=== PATIENT | male | born 2000 | race Hispanic/Latino ===

== ENCOUNTER 2020-10-03 18:27 | Inpatient (IN) | payer OTHER ==
[~2020-10-03] VITALS: Ht 162.6 cm; Wt 68.9 kg
[2020-10-03] MEDS ORDERED: ETOMIDATE INJ 20MG/10ML VIAL IV ONE (19:00)
[2020-10-03] MEDS ORDERED: SUCCINYLCHOLINE INJ 200 MG/10 ML VIAL (J0330) IV ONE (19:00)
[2020-10-03] MEDS ORDERED: LIDOCAINE 2% 5ML JELLY UROJET TOP ONE (19:00)
[2020-10-03] MEDS ORDERED: NS 1,000 ML IV ONE (19:00)
[2020-10-03 19:04] LABS: BASO % 0.4 % (0.0-1.0); EOS # 0.1 10^3/uL (0.0-0.5); EOS % 0.8 % (0.0-3.0); HEMATOCRIT 47.8 % (42.0-52.0); HEMOGLOBIN 15.5 g/dl (13.5-17.5); LYMPH # 3.9 10^3/uL (1.5-5.0); LYMPH % 36.4 % (24.0-44.0); MEAN CORPUSCULAR HEMOGLOBIN 27.5 pg (27.0-33.0); MEAN CORPUSCULAR HGB CONC 32.4 g/dl (32.0-36.5); MEAN CORPUSCULAR VOLUME 84.9 fl (80.0-96.0); MONO # 0.9 10^3/uL (0.0-0.8); MONO % 8.3 % (0.0-5.0); NEUTROPHILS # 5.7 10^3/uL (1.5-8.5); NEUTROPHILS % 53.3 % (36.0-66.0); PLATELET COUNT, AUTOMATED 263 10^3/uL (150-450); RED BLOOD COUNT 5.63 10^6/uL (4.30-6.10); WHITE BLOOD COUNT 10.6 10^3/uL (4.0-10.0)
[2020-10-03] MEDS ORDERED: PROPOFOL 1,000 MG/100 ML VIAL As Ordered ONE (19:11)
[2020-10-03] MEDS ORDERED: propofoL 1,000 MG in IV 1 EA IV SCH (19:15)
--- NOTE | 2020-10-03 19:28 | REP ---
INDICATION: Altered Mental Status COMPARISON: None. TECHNIQUE: Portable AP view of the chest FINDINGS: Endotracheal tube 3 cm above the derian. Nasogastric tube terminates at the mid esophagus and requires advancement. The mediastinum and cardiac silhouette are within normal limits for portable technique. The lung cortez demonstrate diffuse left-sided and right infrahilar infiltrates consistent with multifocal pneumonia. No effusion. No pneumothorax. IMPRESSION: 1. Nasogastric tube terminates at the mid esophagus and requires advancement. 2. Endotracheal tube in satisfactory position. 3. Diffuse left-sided and right infrahilar infiltrates compatible with pneumonia. Findings should be correlated with patient's COVID-19 status. <Electronically signed by Jeffrey Vaca > 10/03/20 [id number]
[2020-10-03 19:36] LABS: ACETAMINOPHEN LEVEL < 2.0 UG/ML (10.0-30.0); ALBUMIN 4.1 GM/DL (3.2-5.2); ALT/SGPT 51 U/L (12-78); BILIRUBIN,DIRECT 0.1 MG/DL (0.0-0.2); BILIRUBIN,TOTAL 0.3 MG/DL (0.2-1.0); BLOOD UREA NITROGEN 8 MG/DL (7-18); CALCIUM LEVEL 8.7 MG/DL (8.5-10.1); CARBON DIOXIDE LEVEL 28 MEQ/L (21-32); CHLORIDE LEVEL 103 MEQ/L (98-107); CK-MB VALUE MASS 1.3 NG/ML (<3.6); CPK CREATINE PHOSPHOKINASE 195 U/L (39-308); CREATININE FOR GFR 0.86 MG/DL (0.70-1.30); ETHYL ALCOHOL (ETHANOL) 0.307 % (0.000-0.010); GLOMERULAR FILTRATION RATE > 60.0 (>60); GLUCOSE, FASTING 119 MG/DL (70-100); MB/CK RELATIVE INDEX 0.67 (< OR =4); POTASSIUM SERUM 3.4 MEQ/L (3.5-5.1); SALICYLATE LEVEL < 1.7 MG/DL (5.0-30.0); SODIUM LEVEL 140 MEQ/L (136-145); TOTAL PROTEIN 8.5 GM/DL (6.4-8.2); TROPONIN I < 0.02 NG/ML (< 0.10)
[2020-10-03 20:25] LABS: RSV AMPLIFICATION NEGATIVE (NEGATIVE)
--- NOTE | 2020-10-03 20:25 | REPVR ---
PROCEDURE INFORMATION: Exam: CT Head Without Contrast Exam date and time: 10/03/2020 7:51 PM Age: 20 years old Clinical indication: Altered mental status/memory loss TECHNIQUE: Imaging protocol: Computed tomography of the head without contrast. Radiation optimization: All CT scans at this facility use at least one of these dose optimization techniques: automated exposure control; mA and/or kV adjustment per patient size (includes targeted exams where dose is matched to clinical indication); or iterative reconstruction. COMPARISON: No relevant prior studies available. FINDINGS: Brain: Normal. No hemorrhage. Unremarkable white matter. No mass effect. Cerebral ventricles: No ventriculomegaly. Bones/joints: Unremarkable. No acute fracture. Paranasal sinuses: Visualized sinuses are unremarkable. No fluid levels. Mastoid air cells: Visualized mastoid air cells are well aerated. Soft tissues: Unremarkable. IMPRESSION: No acute intracranial abnormality. Electronically signed by: Ranulfo Virk On 10/03/2020 20:25:32 PM
[2020-10-03 21:01] LABS: AMPHETAMINES LEVEL URINE NEGATIVE (NEGATIVE); BARBITURATES URINE NEGATIVE (NEGATIVE); BENZODIAZEPINES URINE NEGATIVE (NEGATIVE); CANNABINOIDS URINE NEGATIVE (NEGATIVE); COCAINE METABOLITE URINE NEGATIVE (NEGATIVE); METHADONE URINE NEGATIVE (NEGATIVE); OPIATES URINE NEGATIVE (NEGATIVE); PHENCYCLIDINE URINE NEGATIVE (NEGATIVE)
[2020-10-03] MEDS: D5W/0.9% SODIUM CHLORIDE 1,000 ML IV SCH (21:51)
[2020-10-03] MEDS: cefTRIAXone SOD 1 GM in D5W MINI-BAG PLUS 50 ML IV SCH (21:51)
[2020-10-03] MEDS ORDERED: SYNT25TA PO (21:58)
[2020-10-03] MEDS ORDERED: PRAZ2CAP PO (21:58)
[2020-10-03] MEDS ORDERED: DIVA500T94 PO (21:58)
[2020-10-03] MEDS ORDERED: DIVA250T67 PO (21:58)
[2020-10-03] MEDS ORDERED: OLAN10TA2 PO (21:58)
[2020-10-03] MEDS ORDERED: PANT40TA29 PO (21:58)
[2020-10-03] MEDS ORDERED: SERT25TA21 PO (21:58)
[2020-10-03 23:49] LABS: ABG pH (ARTERIAL) 7.314 UNITS (7.350-7.450)
[2020-10-03 23:50] LABS: ABG BASE EXCESS -5.8 (-2.0-2.0); ABG HCO3 19.9 MEQ/L (22.0-26.0); ABG O2 SATURATION 99.1 % (95.0-99.0); ABG PARTIAL PRESSURE CO2 40.1 mmHg (35.0-45.0); ABG PARTIAL PRESSURE O2 186.3 mmHg (75.0-100.0); ABG STANDARD HCO3 19.8 MEQ/L (22.0-26.0); ABG TOTAL CO2 21.2 MEQ/L (22.0-29.0)
[2020-10-04] VITALS (14 sets, daily range): BP systolic 104–131; BP diastolic 56–81; PULSE 71
[2020-10-04] MEDS: MIDAZOLAM INJ 2MG/2ML VIAL (J2250 PER 1MG) IV PRN ×8 (02:08→23:04)
[2020-10-04] MEDS: propofoL 1,000 MG in IV 1 EA IV SCH ×2 (03:53→16:19)
[2020-10-04 05:27] LABS: BASO % 0.2 % (0.0-1.0); EOS % 0.4 % (0.0-3.0); HEMATOCRIT 46.5 % (42.0-52.0); HEMOGLOBIN 15.6 g/dl (13.5-17.5); LYMPH # 2.2 10^3/uL (1.5-5.0); LYMPH % 21.3 % (24.0-44.0); MEAN CORPUSCULAR HEMOGLOBIN 28.4 pg (27.0-33.0); MEAN CORPUSCULAR HGB CONC 33.5 g/dl (32.0-36.5); MEAN CORPUSCULAR VOLUME 84.7 fl (80.0-96.0); MONO # 1.3 10^3/uL (0.0-0.8); MONO % 12.6 % (0.0-5.0); NEUTROPHILS # 6.7 10^3/uL (1.5-8.5); NEUTROPHILS % 65.1 % (36.0-66.0); PLATELET COUNT, AUTOMATED 231 10^3/uL (150-450); RED BLOOD COUNT 5.49 10^6/uL (4.30-6.10); WHITE BLOOD COUNT 10.2 10^3/uL (4.0-10.0)
[2020-10-04 05:56] LABS: ABG BASE EXCESS -1.3 (-2.0-2.0); ABG HCO3 23.6 MEQ/L (22.0-26.0); ABG O2 SATURATION 98.1 % (95.0-99.0); ABG PARTIAL PRESSURE CO2 40.8 mmHg (35.0-45.0); ABG STANDARD HCO3 23.4 MEQ/L (22.0-26.0); ABG TOTAL CO2 24.9 MEQ/L (22.0-29.0); ABG pH (ARTERIAL) 7.381 UNITS (7.350-7.450)
[2020-10-04 06:02] LABS: ALBUMIN 3.3 GM/DL (3.2-5.2); ALT/SGPT 53 U/L (12-78); BILIRUBIN,TOTAL 0.5 MG/DL (0.2-1.0); BLOOD UREA NITROGEN 5 MG/DL (7-18); CARBON DIOXIDE LEVEL 24 MEQ/L (21-32); CHLORIDE LEVEL 111 MEQ/L (98-107); CHOLESTEROL LEVEL 125 MG/DL (< 200); CPK CREATINE PHOSPHOKINASE 3295 U/L (39-308); GLOMERULAR FILTRATION RATE > 60.0 (>60); GLUCOSE, FASTING 114 MG/DL (70-100); LDH LACTATE DEHYDROGENASE 244 U/L (87-241); PHOSPHORUS LEVEL 3.9 MG/DL (2.5-4.9); POTASSIUM SERUM 3.8 MEQ/L (3.5-5.1); SODIUM LEVEL 144 MEQ/L (136-145); TOTAL PROTEIN 7.4 GM/DL (6.4-8.2); TRIGLYCERIDES LEVEL 221 MG/DL (<150)
[2020-10-04] MEDS: IPRATROPIUM 0.5MG/ALBUTEROL 2.5MG INH SOL UD 3ML (DUONEB) NEB SCH ×4 (07:31→20:48)
--- NOTE | 2020-10-04 07:41 | ECGEPIP ---
[facility] - ED Test Date: 2020-10-03 Pat Name: LARY BARRAGAN Department: Room: - Gender: Male Mri Technologist: : 2002-10-03 Requested By: JENNIFER ECHEVARRIA Order Number: [id number] Reading MD: Marci Vasquez Measurements Intervals [place] Rate: 73 P: 31 IA: 178 QRS: 87 QRSD: 94 T: 43 QT: 383 QTc: 425 Interpretive Statements SINUS RHYTHM EARLY REPOLARIZATION MODERATE VOLTAGE CRITERIA FOR LVH, CONSIDER NORMAL VARIANT baseline artifact may affect interpretation No prior Electronically Signed on 10-04-2020 7:41:20 EST by Marci Vasquez
--- NOTE | 2020-10-04 07:53 | CCN ---
CRITICAL CARE NOTE DATE: 10/03/2020 SUBJECTIVE: I was called stat to the emergency department to evaluate this 20-year-old male who was found outdoors in the cold poorly responsive. There was no change in his responsiveness with administration of Narcan at the scene. He was brought to the emergency department and evaluated found to be poorly responsive there with no response to noxious stimuli. Jocelin Coma Score of 3. Diagnostic studies have been performed and an endotracheal tube has been placed. OBJECTIVE: GENERAL APPEARANCE: On my arrival, he is sedate with propofol. VITAL SIGNS: Temperature 95, pulse rate 64, respirations 12/12 delivered. No spontaneous breaths over the mechanically ventilated breaths. Blood pressure 104/58. HEENT: His head is atraumatic. The pupils are similar in size, small about 4 mm, and minimal response to light. There is an endotracheal tube and orogastric tube in good position. The mucosa are moist. NECK: Supple. No obvious meningismus. HEART: Sounds are regular without appreciable murmur. No lift, no rub. LUNGS: Breath sounds are mildly coarse bilaterally. No other focal adventitial breath sounds appreciated. CHEST: Moves symmetrically with ventilated breaths. ABDOMEN: Soft with intact bowel sounds. There is no palpable mass or organomegaly. EXTREMITIES: Cool. Feet are cold. Pulses are palpable in all four extremities. There are no obvious deformities. There is a tattoo on the left arm. DIAGNOSTIC STUDIES: Reviewed and assessed. The white cell count is 10.6, hemoglobin is 15.5, hematocrit 47.8, platelet count 263,000. Differential white cell count shows 53% neutrophils. There are 8.3% monocytes. The electrolytes were sodium 140, potassium 3.4, chloride 103, CO2 of 28, BUN of 8, creatinine 0.83, glucose 119, lactic acid level 4.6, calcium 8.7, but the albumin level is 4.1, bilirubin 0.3, AST is 36, ALT 51, alkaline phosphatase 99, and CPK 195. Troponin is less than 0.02. TSH is 2.010. The toxicology screen was showing ethyl alcohol 0.387. Opiates and methadone were negative. Barbiturates negative. Phencyclidine negative. Amphetamines negative. Benzodiazepines negative. Cocaine and cannabinoids were negative. A smear for COVID was performed and was negative. Influenza A and B were negative. RSV was negative. DIAGNOSTIC IMAGING: Studies reviewed and assessed. Chest x-ray shows hazy interstitial infiltrates, left greater than right, and a formal report is pending. CT scan of his head was performed. There was no acute intracranial abnormality appreciated by radiology. MEDICAL RECORD REVIEW: I have reviewed medical records, and there have been multiple hospitalizations for schizoaffective disorder. There is mention in one of his history and physical exams of asthma. His last discharge in July of 2020 was to the transitional living services. ASSESSMENT AND PLAN: 1. The primary problem requiring critical attention is acute respiratory failure. An endotracheal tube has been placed. We will initiate mechanical ventilation, sedate with propofol, and follow gas exchange. 2. Abnormal x-rays. The image is nonspecific suggesting a possible aspiration event. COVID pneumonia was suggested by the radiologist report now; however, the COVID smear was negative. We will initiate empiric Rocephin and obtain a sputum culture. 3. Hypothermia. The patient's temperature is now 95.6. External warming has been initiated. We will continue with external warming on his transfer. 4. Altered level of consciousness. It is unclear at this point whether this was related to a medication ingestion, though his tox screen was negative, or hypoxic encephalopathy. As noted above, the brain CT is negative. We will closely monitor neurologic signs. 5. Deep vein thrombosis (DVT) prophylaxis will be addressed with sequential hose and TEDs. We will avoid anticoagulation until we are able to better assess his status neurologically. 6. Ulcer prophylaxis will be addressed with Protonix. I have reviewed the case and diagnostic studies with the emergency department providers. I have updated the intensive care unit team and the plans of care have been reviewed. CRITICAL CARE TIME: 127 minutes spent in the provision of bedside critical care and coordination; excluding any time for the performance of procedures.
[2020-10-04] MEDS: D5W/0.9% SODIUM CHLORIDE 1,000 ML IV SCH ×2 (07:59→16:18)
[2020-10-04] MEDS: PANTOPRAZOLE 40MG VIAL (C9113 PER 1) IV SCH (08:05)
[2020-10-04] MEDS: CHLORHEXIDINE GLUCONATE 0.12 % 15ML UDC (PERIDEX ORAL RINSE) MT SCH ×2 (08:05→20:49)
--- NOTE | 2020-10-04 08:14 | REP ---
INDICATION: ETT COMPARISON: 10/03/2020 TECHNIQUE: Portable AP view of the chest FINDINGS: Endotracheal tube and nasogastric tube are in satisfactory position. The mediastinum and cardiac silhouette are stable and within normal limits for portable technique. The lung cortez demonstrate improved aeration with decreased infiltrates. Continued bilateral lower lobe airspace disease/atelectasis noted. No effusion. No pneumothorax. Skeletal structures intact. IMPRESSION: 1. Endotracheal tube and nasogastric tube in satisfactory position. 2. Improved aeration primarily to the upper lung zones. Lower lobe airspace disease/atelectasis again noted. <Electronically signed by Jeffrey Vaac > 10/04/20 [id number]
[2020-10-04] MEDS: ACETAMINOPHEN 325 MG/10.15 ML UDC GT PRN ×2 (13:20→20:50)
--- NOTE | 2020-10-04 15:55 | CCN ---
CRITICAL CARE NOTE DATE: 10/04/2020 The patient is seen in the intensive care unit intubated, mechanically ventilated, critically ill. Over the last 12 hours since admission he has become intermittent more responsive and is occasionally appropriate with nurses. Temperature is 100.6, pulse rate 99, respirations 17, blood pressure 113/60. Intake and output for the past 24 hours 1050 in, out not recorded, since midnight 1230 in, 1525 out. At bedside he is ill appearing, sedate. Endotracheal tube is at 23 cm. His mucosa is moist. Neck is supple. Heart sounds are regular without appreciable murmur. Breath sounds are clear, mildly coarse in the right base. Abdomen is soft with intact bowel sounds. Extremities show no significant edema. Pulses are palpable. DIAGNOSTIC STUDIES: His white cell count is 10.2, hemoglobin is stable at 15.6, hematocrit 46.5, platelet count is 213. Differential white cell count shows 65% neutrophils. The sodium is 144, potassium 3.8, chloride 111, CO2 of 24, BUN 5, creatinine 0.7, glucose 114, calcium 8. Bilirubin ;0.5. AST is up slightly at 84, ALT 53. LDH is 244. CPK is up significantly at 3295. Albumin is 3.3. An arterial blood gas showed a pH of 7.38, pCO2 of 40, pO2 of 106, this on assist-control mode of ventilation. Toxicology showed positive for ethyl alcohol, 0.30. Chest imaging was reviewed and is essentially clear with some hazy infiltrate in the right lower lobe, better inflation than yesterday. On medications review, he is receiving Rocephin 2 gram every 24 hours, propofol for sedation, Versed as needed, and Intravenous (IV) with D5 and saline at 120 per hour, Protonix 40 mg a day. The primary problem requiring critical attention is acute respiratory failure. The patient's arterial blood gases are acceptable, and I will change to an intermittent mandatory ventilation mode to allow spontaneous respiratory efforts. Aspiration pneumonia. The chest x-ray looks improved. He did run a temperature this morning, and we have cultured his sputum. We will continue with empiric Rocephin pending the results of that culture. Rhabdomyolysis. The CPK is up some. I have increased his IV fluids. We will keep a close watch on his urine output. Deep venous thrombosis (DVT) and ulcer prophylaxis are in place. The patient's condition remains critical. ICU care remains appropriate. I have reviewed the plans of care with nursing staff. Ninety-eight minutes was spent in the provision of bedside critical care and coordination, exclusive of any procedure time.
[2020-10-04] MEDS: cefTRIAXone SOD 1 GM in D5W MINI-BAG PLUS 50 ML IV SCH (20:50)
[2020-10-05] VITALS: BP 112/67
[2020-10-05] MEDS: propofoL 1,000 MG in IV 1 EA IV SCH (00:26)
[2020-10-05] MEDS: D5W/0.9% SODIUM CHLORIDE 1,000 ML IV SCH ×2 (01:00→10:47)
[2020-10-05] MEDS: ACETAMINOPHEN 325 MG/10.15 ML UDC GT PRN ×3 (02:12→22:28)
[2020-10-05 05:47] LABS: BASO % 0.2 % (0.0-1.0); EOS % 0.2 % (0.0-3.0); HEMATOCRIT 41.2 % (42.0-52.0); LYMPH % 16.4 % (24.0-44.0); MEAN CORPUSCULAR HGB CONC 32.5 g/dl (32.0-36.5); MEAN CORPUSCULAR VOLUME 86.2 fl (80.0-96.0); MONO # 2.3 10^3/uL (0.0-0.8); MONO % 18.7 % (0.0-5.0); NEUTROPHILS # 7.8 10^3/uL (1.5-8.5); NEUTROPHILS % 64.2 % (36.0-66.0); PLATELET COUNT, AUTOMATED 193 10^3/uL (150-450); RED BLOOD COUNT 4.78 10^6/uL (4.30-6.10); WHITE BLOOD COUNT 12.2 10^3/uL (4.0-10.0)
[2020-10-05 05:51] LABS: ABG O2 SATURATION 95.2 % (95.0-99.0); ABG PARTIAL PRESSURE CO2 34.4 mmHg (35.0-45.0); ABG PARTIAL PRESSURE O2 77.2 mmHg (75.0-100.0); ABG STANDARD HCO3 21.9 MEQ/L (22.0-26.0); ABG TOTAL CO2 22.1 MEQ/L (22.0-29.0); ABG pH (ARTERIAL) 7.404 UNITS (7.350-7.450)
[2020-10-05 05:55] LABS: HEMOGLOBIN 13.4 g/dl (13.5-17.5)
[2020-10-05 06:29] LABS: ALBUMIN 2.9 GM/DL (3.2-5.2); ALT/SGPT 41 U/L (12-78); BILIRUBIN,TOTAL 0.8 MG/DL (0.2-1.0); BLOOD UREA NITROGEN 5 MG/DL (7-18); CALCIUM LEVEL 8.1 MG/DL (8.5-10.1); CARBON DIOXIDE LEVEL 26 MEQ/L (21-32); CHLORIDE LEVEL 112 MEQ/L (98-107); CHOLESTEROL LEVEL 99 MG/DL (< 200); CPK CREATINE PHOSPHOKINASE 1942 U/L (39-308); CREATININE FOR GFR 0.78 MG/DL (0.70-1.30); GLOMERULAR FILTRATION RATE > 60.0 (>60); GLUCOSE, FASTING 118 MG/DL (70-100); LDH LACTATE DEHYDROGENASE 216 U/L (87-241); PHOSPHORUS LEVEL 2.6 MG/DL (2.5-4.9); POTASSIUM SERUM 3.5 MEQ/L (3.5-5.1); SODIUM LEVEL 143 MEQ/L (136-145); TOTAL PROTEIN 6.9 GM/DL (6.4-8.2); TRIGLYCERIDES LEVEL 188 MG/DL (<150)
--- NOTE | 2020-10-05 07:39 | REP ---
INDICATION: ETT COMPARISON: 10/04/2019 TECHNIQUE: Portable AP view of the chest FINDINGS: Endotracheal tube 3 cm above the derian. Nasogastric tube courses below left hemidiaphragm in satisfactory position. Mediastinum and cardiac silhouette are normal. Lung cortez demonstrate minimal improved basilar airspace disease/atelectasis. No focal consolidation. No effusion. No pneumothorax. IMPRESSION: 1. Lines and tubes in satisfactory position. 2. Improved aeration to the bilateral lung cortez with minimal trace residual basilar atelectasis suggested. <Electronically signed by Jeffrey Vaca > 10/05/20 0735
[2020-10-05] MEDS: IPRATROPIUM 0.5MG/ALBUTEROL 2.5MG INH SOL UD 3ML (DUONEB) NEB SCH ×4 (07:41→20:21)
[2020-10-05] MEDS: CHLORHEXIDINE GLUCONATE 0.12 % 15ML UDC (PERIDEX ORAL RINSE) MT SCH (08:16)
[2020-10-05] MEDS: PANTOPRAZOLE 40MG VIAL (C9113 PER 1) IV SCH (08:16)
--- NOTE | 2020-10-05 11:07 | IPN ---
PULMONARY PROGRESS NOTE DATE: 10/05/2020 SUBJECTIVE: I attended Deven Ballard here in the Intensive Care Unit. Patient has been examined, chart reviewed. He is awake, alert, and appropriate despite low dose of propofol. T-max overnight 100.6, blood pressure 112 systolic, heart rate 70-100 with a sinus mechanism, respiratory rate 16-20 without accessory muscle use. Input and output midnight to midnight 2297 mL in with 1870 mL out. Chest x-ray shows improved infiltrate. Some residual basilar atelectasis. Lines and tubes in good position with no acute findings. Blood gas done this morning on an SIMV mode: A pH 7.404, pCO2 34.4, pO2 77.2. That is on 21% FiO2. Sodium 143, K 3.5, chloride 112, CO2 26, BUN 5, creatinine 0.78, glucose 118. CK down to 1,942. White blood cell count 12.2, hemoglobin 13.4, platelet count of 193,000, 64% segs, 16% lymphs, no bands. He does have elevated monocytes at 18.7%. PHYSICAL EXAMINATION: GENERAL: On exam he is awake, alert, and appropriate, moves all extremities well and follows commands. HEENT: Pupils react. Sclerae clear. Trachea is in the midline. LUNGS: Clear to auscultation and percussion, symmetric and no significant focal adventitious breath sounds are identified. Tactile fremitus palpable throughout. CARDIAC: Regular with no murmur or gallop. Peripheral pulses palpable with no edema. ABDOMEN: Soft and nontender with active bowel sounds, no hepatosplenomegaly or masses. EXTREMITIES: Extremities with no cyanosis or clubbing. NEUROLOGIC: Neurologically he is awake, alert, and appropriate. PSYCHIATRIC: Alert and oriented times three. Normal mood and affect although somewhat blunted due to the propofol. Propofol was discontinued. After ten minutes he was much more interactive, even more so than above and was extubated without difficulty. No obvious stridor. Swallows well. Complains of some chest discomfort. IMPRESSION: 1. Intoxication requiring mechanical ventilatory support. 2. Suspected aspiration pneumonitis. 3. ETOH/substance abuse. RECOMMENDATIONS: At this point he has been extubated. He should receive several more days of antimicrobials. He will be transferred to the hospitalist service. Whether or not he may benefit from detox or inpatient management of that will be up to further evaluation by the hospitalist service. We will proceed as outlined above. Further recommendations will be made in the progress records as new information becomes available.
[2020-10-05 13:31] VITALS: BP 139/85
--- NOTE | 2020-10-05 13:37 | IPNPDOC ---
Date Seen The patient was seen on 10/05/20. Progress Note SUBJECTIVE: Patient was extubated this morning and had no post extubation complications. He is awake, alert, oriented 3, answering questions appropriately with no respiratory distress, currently on nasal cannula. He is anxious to start eating. He otherwise complains of slight sore throat but no dysphagia or odynophagia. He denies any shortness of breath, chest pain, pressure, tightness, and says that he is comfortable. . He said that he has always been depressed and had been drinking alcohol with his friend .He denies any suicidal ideation, Suicidal plan, or homicidal ideation. History father on the telephone states that he's been depressed all of his life, with no recent stressful situations. OBJECTIVE PHYSICAL EXAMINATION: VITAL SIGNS: Please see below. GENERAL: Awake, alert, oriented to person, place and time. No respiratory distress, speaks in full sentences HEENT: Dry mucous membranes. No JVD, thyromegaly, cervical lymphadenopathy CARDIOVASCULAR: S1, S2, sinus rhythm, no murmurs, rubs or gallops. RESPIRATORY: Diminished crackles at the right base ABDOMINAL: Positive bowel sounds, soft, nontender, nondistended. Robledo to gravity with yellow urine EXTREMITIES: No cyanosis, clubbing or pitting edema LABORATORY DATA, IMAGING STUDIES, MICROBIOLOGY: Please see below. The toxicology screen was showing ethyl alcohol 0.387. Opiates and methadone were negative. Barbiturates negative. Phencyclidine negative. Amphetamines negative. Benzodiazepines negative. Cocaine and cannabinoids were negative. A smear for COVID was performed and was negative. Influenza A and B were negative. RSV was negative. DIAGNOSTIC IMAGING: Studies reviewed and assessed. Chest x-ray shows hazy interstitial infiltrates, left greater than right, and a formal report is pending. CT scan of his head was performed. There was no acute intracranial abnormality appreciated by radiology. ASSESSMENT AND PLAN: 20-year-old male brought into the emergency room on 10/03/2020 [place] was given Narcan, but had acute hypoxic respiratory failure, hypothermia, aspiration, rhabdomyolysis. Acute hypoxic respiratory failure ETOH intoxication Hypothermia Aspiration pneumonia RLL Rhabdomyolysis Depression Plan: medically stable for med surg transfer. STaph aureus in sputum cx-continue iv ceftriaxone. ella robledo, ella ivfluids advance diet if no signs of aspiration. pt denies suicidal/homicidal tendency, and requests psychiatric consultation for depression. VS, I&O, 24H, Fishbone Vital Signs/I&O Vital Signs Date Time Temp Pulse Resp B/P (MAP) Pulse Ox O2 Delivery O2 Flow Rate FiO2 10/05/20 08:00 21 10/05/20 07:40 72 16 94 10/05/20 04:00 100.2 Ventilator 10/05/20 00:00 112/67 (86) I&O- Last 24 Hours up to 6 AM 10/05/20 06:00 Intake Total 1924.8 ml Output Total 930 ml Balance 994.8 ml Laboratory Data 24H LABS Laboratory Tests 2 10/05/20 05:13: Immature Granulocyte % (Auto) 0.3, Neutrophils (%) (Auto) 64.2, Lymphocytes (%) (Auto) 16.4L, Monocytes (%) (Auto) 18.7H, Eosinophils (%) (Auto) 0.2, Basophils (%) (Auto) 0.2, Neutrophils # (Auto) 7.8, Lymphocytes # (Auto) 2.0, Monocytes # (Auto) 2.3H, Eosinophils # (Auto) 0.0, Basophils # (Auto) 0.0, Nucleated Red Blo od Cells % (auto) 0.0, Anion Gap 5L, Glomerular Filtration Rate > 60.0, Calcium Level 8.1L, Phosphorus Level 2.6#, Total Bilirubin 0.8#, Aspartate Amino Transf (AST/SGOT) 56H, Alanine Aminotransferase (ALT/SGPT) 41, Alkaline Phosphatase 82, Lactate Dehydrogenase 216, Total Creatine Kinase 1942H, Total Protein 6.9, Albumin 2.9L, Albumin/Globulin Ratio 0.7, Triglycerides Level 188H, Cholesterol Level 99 10/05/20 05:27: Blood Gas Bicarbonate Standard 21.9L, Arterial Blood pH 7.404, Arterial Blood Partial Pressure CO2 34.4L, Arterial Blood Partial Pressure O2 77.2, Arterial Blood Total CO2 22.1, Arterial Blood HCO3 21.0L, Arterial Blood Base Excess - 3.0L, Arterial Blood Oxygen Saturation 95.2 CBC/BMP Laboratory Tests 10/05/20 05:13 Microbiology Microbiology 10/04/20 Gram Stain - Final, Resulted 10/04/20 Sputum Culture - Preliminary, Resulted Staphylococcus Aureus ARIANNA HUIZAR MD Oct 05, 2020 13:17
[2020-10-05 22:00] VITALS: BP 134/77
[2020-10-05] MEDS: cefTRIAXone SOD 1 GM in D5W MINI-BAG PLUS 50 ML IV SCH (22:28)
[2020-10-06 06:00] VITALS: BP 126/88
[2020-10-06 06:16] LABS: ABG BASE EXCESS -3.6 (-2.0-2.0); ABG HCO3 20.2 MEQ/L (22.0-26.0); ABG O2 SATURATION 96.5 % (95.0-99.0); ABG PARTIAL PRESSURE CO2 33.4 mmHg (35.0-45.0); ABG PARTIAL PRESSURE O2 85.8 mmHg (75.0-100.0); ABG STANDARD HCO3 21.5 MEQ/L (22.0-26.0); ABG TOTAL CO2 21.3 MEQ/L (22.0-29.0)
[2020-10-06 06:31] LABS: BASO % 0.3 % (0.0-1.0); EOS # 0.2 10^3/uL (0.0-0.5); HEMATOCRIT 40.7 % (42.0-52.0); HEMOGLOBIN 13.6 g/dl (13.5-17.5); LYMPH # 3.2 10^3/uL (1.5-5.0); LYMPH % 29.9 % (24.0-44.0); MEAN CORPUSCULAR HEMOGLOBIN 28.1 pg (27.0-33.0); MEAN CORPUSCULAR HGB CONC 33.4 g/dl (32.0-36.5); MEAN CORPUSCULAR VOLUME 84.1 fl (80.0-96.0); MONO # 1.4 10^3/uL (0.0-0.8); MONO % 12.6 % (0.0-5.0); NEUTROPHILS # 5.9 10^3/uL (1.5-8.5); NEUTROPHILS % 54.6 % (36.0-66.0); PLATELET COUNT, AUTOMATED 205 10^3/uL (150-450); RED BLOOD COUNT 4.84 10^6/uL (4.30-6.10); WHITE BLOOD COUNT 10.8 10^3/uL (4.0-10.0)
[2020-10-06 07:08] LABS: ALBUMIN 3.3 GM/DL (3.2-5.2); ALT/SGPT 60 U/L (12-78); BILIRUBIN,TOTAL 0.9 MG/DL (0.2-1.0); BLOOD UREA NITROGEN 8 MG/DL (7-18); CALCIUM LEVEL 8.6 MG/DL (8.5-10.1); CARBON DIOXIDE LEVEL 27 MEQ/L (21-32); CHLORIDE LEVEL 108 MEQ/L (98-107); CHOLESTEROL LEVEL 126 MG/DL (< 200); CPK CREATINE PHOSPHOKINASE 1199 U/L (39-308); GLOMERULAR FILTRATION RATE > 60.0 (>60); GLUCOSE, FASTING 91 MG/DL (70-100); LDH LACTATE DEHYDROGENASE 234 U/L (87-241); PHOSPHORUS LEVEL 3.8 MG/DL (2.5-4.9); POTASSIUM SERUM 3.7 MEQ/L (3.5-5.1); SODIUM LEVEL 139 MEQ/L (136-145); TOTAL PROTEIN 7.4 GM/DL (6.4-8.2); TRIGLYCERIDES LEVEL 186 MG/DL (<150)
[2020-10-06] MEDS: IPRATROPIUM 0.5MG/ALBUTEROL 2.5MG INH SOL UD 3ML (DUONEB) NEB SCH ×4 (07:16→19:57)
[2020-10-06] MEDS: PANTOPRAZOLE 40MG VIAL (C9113 PER 1) IV SCH (09:36)
[2020-10-06] MEDS ORDERED: cefTRIAXone SOD 2 GM in D5W MINI-BAG PLUS 50 ML IV SCH (11:00)
--- NOTE | 2020-10-06 12:12 | IPNPDOC ---
Date Seen The patient was seen on 10/06/20. Progress Note S: had fever , but denies chills, sob, or cough no signs of aspiration. no other c/o. OBJECTIVE PHYSICAL EXAMINATION: VITAL SIGNS: Please see below. GENERAL:No respiratory distress, speaks in full sentences HEENT: moist mucous membranes. No JVD, thyromegaly, cervical lymphadenopathy CARDIOVASCULAR: S1, S2, sinus rhythm, no murmurs, rubs or gallops. RESPIRATORY: Diminished crackles at the right base ABDOMINAL: Positive bowel sounds, soft, nontender, nondistended. EXTREMITIES: No cyanosis, clubbing or pitting edema LABORATORY DATA, IMAGING STUDIES, MICROBIOLOGY: Please see below. The toxicology screen was showing ethyl alcohol 0.387. Opiates and methadone were negative. Barbiturates negative. Phencyclidine negative. Amphetamines negative. Benzodiazepines negative. Cocaine and cannabinoids were negative. A smear for COVID was performed and was negative. Influenza A and B were negative. RSV was negative. DIAGNOSTIC IMAGING: Studies reviewed and assessed. Chest x-ray shows hazy interstitial infiltrates, left greater than right, and a formal report is pending. CT scan of his head was performed. There was no acute intracranial abnormality appreciated by radiology. ASSESSMENT AND PLAN: 20-year-old male brought into the emergency room on 10/03/2020 [place] was given Narcan, but had acute hypoxic respiratory failure, hypothermia, aspiration, rhabdomyolysis. Acute hypoxic respiratory failure ETOH intoxication Hypothermia Staph Aureus pneumonia RLL Aspiration Rhabdomyolysis Depression Plan: febrile overnight. increased ceftriaxone to 2grams iv q24h check mrsa screen. iv vanco for possible mrsa check blood cx if positive for mssa will need JACQUELINE to r/o endocarditis. dc home postponed for further eval of fever-concerning for staph bacteremia and possible endocarditis. await blood cx result and 24hrs of defervescence prior to dc home. pharmacy consulted for vanco dosing. VS, I&O, 24H, Fishbone Vital Signs/I&O Vital Signs Date Time Temp Pulse Resp B/P (MAP) Pulse Ox O2 Delivery O2 Flow Rate FiO2 10/06/20 06:00 98.6 88 20 126/88 (101) 95 Room Air 10/05/20 08:00 21 I&O- Last 24 Hours up to 6 AM 10/06/20 06:00 Intake Total 2419 ml Output Total 540 ml Balance 1879 ml Laboratory Data 24H LABS Laboratory Tests 2 10/06/20 05:55: Blood Gas Bicarbonate Standard 21.5L, Arterial Blood pH 7.400, Arterial Blood Partial Pressure CO2 33.4L, Arterial Blood Partial Pressure O2 85.8, Arterial Blood Total CO2 21.3L, Arterial Blood HCO3 20.2L, Arterial Blood Base Excess - 3.6L, Arterial Blood Oxygen Saturation 96.5 10/06/20 06:05: Immature Granulocyte % (Auto) 0.6, Neutrophils (%) (Auto) 54.6, Lymphocytes (%) (Auto) 29.9, Monocytes (%) (Auto) 12.6H, Eosinophils (%) (Auto) 2.0, Basophils (%) (Auto) 0.3, Neutrophils # (Auto) 5.9, Lymphocytes # (Auto) 3.2, Monocytes # (Auto) 1.4H, Eosinophils # (Auto) 0.2, Basophils # (Auto) 0.0, Nucleated Red Blood Cells % (auto) 0.0, Anion Gap 4L, Glomerular Filtration Rate > 60.0, Calcium Level 8.6, Phosphorus Level 3.8#, Total Bilirubin 0.9, Aspartate Amino Transf (AST/SGOT) 63H, Alanine Aminotransferase (ALT/SGPT) 60, Alkaline Phosphatase 99, Lactate Dehydrogenase 234, Total Creatine Kinase 1199H, Total Protein 7.4, Albumin 3.3, Albumin/Globulin Ratio 0.8, Triglycerides Level 186H, Cholesterol Level 126 10/06/20 11:34: CBC/BMP Laboratory Tests 10/06/20 06:05 Microbiology Microbiology 10/06/20 Blood Culture, Received Pending 10/06/20 Blood Culture, Received Pending 10/04/20 Gram Stain - Final, Resulted 10/04/20 Sputum Culture - Preliminary, Resulted Staphylococcus Aureus ARIANNA HUIZAR MD Oct 06, 2020 12:12
[2020-10-06] MEDS ORDERED: VANCOMYCIN HCL 1,000 MG, VIAL MATE ADAPTER 1 EACH in D5W 250 ML IV ONE (14:00)
--- NOTE | 2020-10-06 14:21 | MHCR ---
PSYCHIATRIC CONSULTATION DATE: 10/05/2020 HISTORY OF PRESENT ILLNESS: This 22-year-old patient was admitted in respiratory failure with hypothermia and had to be intubated and he had aspiration and some rhabdomyolysis. [place] in an acutely intoxicated state with alcohol. The patient is very cooperative. He tells me that he lives in [facility] ([facility]) in [place] and that he went out with one of the other residents and he suggested that they go drink alcohol. He admits that he drank to intoxication. He really does not remember what happened after that. He absolutely denies that this was a suicidal attempt. The patient does have a significant psychiatric history. He has been hospitalized numerous times in the psychiatric unit and he lives in [facility], which is a [facility] for people with psychiatric illness. He has been living there for two months, he says. He says that he really likes it there a lot. He says he was getting outpatient treatment, but he cannot remember at what clinic, but then we asked him if it was the [facility] clinic and he said yes. He says he is prescribed various medications that include Depakote, Zyprexa, Zoloft and prazosin. He says he is diagnosed with "severe anxiety, depression, bipolar and schizoaffective disorder." PAST PSYCHIATRIC HISTORY: Please refer to the above. The patient has had two psychiatric admissions at [facility] inpatient unit. Last admission was July 24, 2020 until July 30, 2020. He was diagnosed with schizoaffective disorder, posttraumatic stress disorder (PTSD) and anxiety disorder. He was admitted for depression and he had suicidal ideations and was discharged on Depakote 500 mg in the morning, 750 at bedtime, Zyprexa 10 mg twice a day, prazosin 2 mg at bedtime and Zoloft 25 mg daily. According to those records, it states that this patient has had more than 40 admissions. He has a history of overdosing on Xanax once when he was 14 years old. FAMILY HISTORY: There is no psychiatric illness or suicides in the family. MEDICAL HISTORY: Patient denies any medical problems. ABUSE HISTORY: He denies any history of abuse. SUBSTANCE ABUSE HISTORY: He says that he drinks only occasionally and he has never had any trouble with any drugs. MENTAL STATUS EXAMINATION: He is alert and oriented times three. Eye contact is fair. He is just extubated, so he is having a little trouble with his throat being raspy and he tends to speak very slowly, but he is spontaneous. There is no formal thought disorder. He says that he does have some depression. Affect is appropriate. He is no psychotic, suicidal or homicidal. Concentration is fairly good. Memory intact. Insight and judgment is good. DIAGNOSES: 1. Schizoaffective disorder by history. 2. Posttraumatic stress disorder by history. 3. Unspecified anxiety disorder by history. RECOMMENDATIONS: At this point, I do not think that this was a suicidal attempt on this patient. He does have a significant psychiatric history, but he lives at [facility] and I did speak with patient and family services (PFS), Shania, and left her a message to please call [facility] in [place] to make sure the patient could go back there. The patient already has his outpatient psychiatric treatment set up for him and he should continue that and continue his current medications.
[2020-10-06] MEDS ORDERED: ALPRAZolam 0.5 MG TAB PO PRN (15:15)
[2020-10-06] MEDS ORDERED: ALPRAZolam 0.5 MG TAB PO ONE (15:30)
[2020-10-06] MEDS: VANCOMYCIN HCL 1,000 MG, VIAL MATE ADAPTER 1 EACH in D5W 250 ML IV SCH (20:57)
[2020-10-06 22:00] VITALS: BP 120/79
[2020-10-07] MEDS: VANCOMYCIN HCL 1,000 MG, VIAL MATE ADAPTER 1 EACH in D5W 250 ML IV SCH ×3 (04:31→20:58)
[2020-10-07 06:00] VITALS: BP 119/56
[2020-10-07 06:08] LABS: BASO % 0.4 % (0.0-1.0); EOS # 0.3 10^3/uL (0.0-0.5); EOS % 3.2 % (0.0-3.0); HEMATOCRIT 40.9 % (42.0-52.0); HEMOGLOBIN 13.4 g/dl (13.5-17.5); LYMPH # 2.9 10^3/uL (1.5-5.0); LYMPH % 37.7 % (24.0-44.0); MEAN CORPUSCULAR HEMOGLOBIN 27.6 pg (27.0-33.0); MEAN CORPUSCULAR HGB CONC 32.8 g/dl (32.0-36.5); MEAN CORPUSCULAR VOLUME 84.2 fl (80.0-96.0); MONO # 0.8 10^3/uL (0.0-0.8); MONO % 9.7 % (0.0-5.0); NEUTROPHILS # 3.7 10^3/uL (1.5-8.5); PLATELET COUNT, AUTOMATED 230 10^3/uL (150-450); RED BLOOD COUNT 4.86 10^6/uL (4.30-6.10); WHITE BLOOD COUNT 7.7 10^3/uL (4.0-10.0)
[2020-10-07 06:39] LABS: BLOOD UREA NITROGEN 11 MG/DL (7-18); C REACTIVE PROTEIN QUANTITATIV 6.89 MG/DL (0.00-0.30); CALCIUM LEVEL 8.8 MG/DL (8.5-10.1); CARBON DIOXIDE LEVEL 25 MEQ/L (21-32); CHLORIDE LEVEL 104 MEQ/L (98-107); CREATININE FOR GFR 0.71 MG/DL (0.70-1.30); GLOMERULAR FILTRATION RATE > 60.0 (>60); GLUCOSE, FASTING 121 MG/DL (70-100); SODIUM LEVEL 136 MEQ/L (136-145)
[2020-10-07 06:42] LABS: ABG BASE EXCESS -3.5 (-2.0-2.0); ABG HCO3 20.3 MEQ/L (22.0-26.0); ABG O2 SATURATION 98.9 % (95.0-99.0); ABG PARTIAL PRESSURE CO2 33.4 mmHg (35.0-45.0); ABG PARTIAL PRESSURE O2 136.4 mmHg (75.0-100.0); ABG STANDARD HCO3 21.6 MEQ/L (22.0-26.0); ABG TOTAL CO2 21.3 MEQ/L (22.0-29.0); ABG pH (ARTERIAL) 7.401 UNITS (7.350-7.450)
[2020-10-07 07:19] LABS: ERYTHROCYTE SEDIMENTATION RATE 28 mm/hr (0-15)
[2020-10-07] MEDS ORDERED: ZYVO1TAB PO (07:43)
[2020-10-07] MEDS: IPRATROPIUM 0.5MG/ALBUTEROL 2.5MG INH SOL UD 3ML (DUONEB) NEB SCH ×4 (07:53→20:00)
[2020-10-07] MEDS ORDERED: SERTRALINE HCL 25 MG TABLET PO SCH (10:00)
[2020-10-07] MEDS: LEVOTHYROXINE 37.5MCG PER 1/2TAB (0.0375MG) PO SCH (10:46)
[2020-10-07] MEDS: OLANZapine 10 MG TAB PO SCH ×2 (10:46→20:56)
[2020-10-07] MEDS: DIVALPROEX 500 MG TAB PO SCH ×2 (10:46→20:57)
[2020-10-07] MEDS: PANTOPRAZOLE 40MG TAB (PROTONIX) PO SCH (10:46)
--- NOTE | 2020-10-07 12:21 | IPNPDOC ---
Date Seen The patient was seen on 10/07/20. Progress Note S: no fever or chills overnight. denies sob cough. very anxious and agitated per RN yesterday only slightly improved on xanax prn. pt c/o depression and requesting home meds to be resumed. MRSA + on sputum cx , placed on isolation-contact. on iv vanco w/o fever overnight. awaiting blood cx to r/o bacteremia. OBJECTIVE PHYSICAL EXAMINATION: VITAL SIGNS: Please see below. GENERAL: talking on the phone with his girlfriend .no conversational dyspnea no distress aaox 3 flat affect HEENT: moist mucous membranes. thyromegaly, cervical lymphadenopathy CARDIOVASCULAR: S1, S2, sinus rhythm, no murmurs, rubs or gallops. RESPIRATORY: Diminished crackles at the right base ABDOMINAL: Positive bowel sounds, soft, nontender, nondistended. EXTREMITIES: No cyanosis, clubbing or pitting edema LABORATORY DATA, IMAGING STUDIES, MICROBIOLOGY: Please see below. The toxicology screen was showing ethyl alcohol 0.387. Opiates and methadone were negative. Barbiturates negative. Phencyclidine negative. Amphetamines negative. Benzodiazepines negative. Cocaine and cannabinoids were negative. A smear for COVID was performed and was negative. Influenza A and B were negative. RSV was negative. DIAGNOSTIC IMAGING: Studies reviewed and assessed. Chest x-ray shows hazy interstitial infiltrates, left greater than right, and a formal report is pending. CT scan of his head was performed. There was no acute intracranial abnormality appreciated by radiology. ASSESSMENT AND PLAN: 20-year-old male brought into the emergency room on 10/03/2020 [place] was given Narcan, but had acute hypoxic respiratory failure, hypothermia, aspiration, rhabdomyolysis. Acute hypoxic respiratory failure,resolved s/p intubation/extubation ETOH intoxication,resolved Hypothermia,resolved Staph Aureus pneumonia RLL Aspiration Rhabdomyolysis,resolved Depression Plan: resolved home meds. zyvox preauth-pfs consulted if negative blood cx final report, ok to dc home on Thursday. resumed home meds except zoloft. xanax prn . VS, I&O, 24H, Fishbone Vital Signs/I&O Vital Signs Date Time Temp Pulse Resp B/P (MAP) Pulse Ox O2 Delivery O2 Flow Rate FiO2 10/07/20 06:00 97.8 83 20 119/56 (77) 0 10/06/20 06:00 Room Air 10/05/20 08:00 21 I&O- Last 24 Hours up to 6 AM 10/07/20 06:00 Intake Total 2690 ml Output Total 0 ml Balance 2690 ml Laboratory Data 24H LABS Laboratory Tests 2 10/07/20 05:54: Immature Granulocyte % (Auto) 1.0, Neutrophils (%) (Auto) 48.0, Lymphocytes (%) (Auto) 37.7, Monocytes (%) (Auto) 9.7H, Eosinophils (%) (Auto) 3.2H, Basophils (%) (Auto) 0.4, Neutrophils # (Auto) 3.7, Lymphocytes # (Auto) 2.9, Monocytes # (Auto) 0.8, Eosinophils # (Auto) 0.3, Basophils # (Auto) 0.0, Nucleated Red Blood Cells % (auto) 0.0, Erythrocyte Sedimentation Rate 28H, Anion Gap 7L, Glomerular Filtration Rate > 60.0, Calcium Level 8.8, C-Reactive Protein, Quantitative 6.89H 10/07/20 06:36: Blood Gas Bicarbonate Standard 21.6L, Arterial Blood pH 7.401, Arterial Blood Partial Pressure CO2 33.4L, Arterial Blood Partial Pressure O2 136.4H, Arterial Blood Total CO2 21.3L, Arterial Blood HCO3 20.3L, Arterial Blood Base Excess - 3.5L, Arterial Blood Oxygen Saturation 98.9 CBC/BMP Laboratory Tests 10/07/20 05:54 Microbiology Microbiology 10/07/20 Blood Culture, Received Pending 10/06/20 Blood Culture - Preliminary, Resulted No growth after 24 hours . All specim... 10/06/20 Blood Culture - Preliminary, Resulted No growth after 24 hours . All specim... 10/04/20 Gram Stain - Final, Complete 10/04/20 Sputum Culture - Final, Complete Staph.aureus Methicillin Resis ARIANNA HUIZAR MD Oct 07, 2020 12:21
[2020-10-07] MEDS: ALPRAZolam 0.5 MG TAB PO SCH ×3 (12:42→20:57)
[2020-10-07 14:00] VITALS: BP 114/66
[2020-10-07 20:57] VITALS: BP 120/65
[2020-10-07] MEDS ORDERED: PRAZOSIN 1 MG CAP PO SCH (21:00)
[2020-10-07] MEDS ORDERED: DIVALPROEX 250 MG TAB PO SCH (21:00)
[2020-10-07 22:00] VITALS: BP 120/65
[2020-10-08] MEDS: VANCOMYCIN HCL 1,000 MG, VIAL MATE ADAPTER 1 EACH in D5W 250 ML IV SCH (04:29)
[2020-10-08 06:00] VITALS: BP 116/68
[2020-10-08] MEDS: LEVOTHYROXINE 37.5MCG PER 1/2TAB (0.0375MG) PO SCH (06:17)
[2020-10-08] MEDS: IPRATROPIUM 0.5MG/ALBUTEROL 2.5MG INH SOL UD 3ML (DUONEB) NEB SCH ×2 (06:29→11:37)
[2020-10-08 06:35] LABS: BASO % 0.6 % (0.0-1.0); EOS # 0.2 10^3/uL (0.0-0.5); EOS % 3.4 % (0.0-3.0); HEMATOCRIT 40.5 % (42.0-52.0); HEMOGLOBIN 13.2 g/dl (13.5-17.5); LYMPH # 2.6 10^3/uL (1.5-5.0); LYMPH % 38.5 % (24.0-44.0); MEAN CORPUSCULAR HEMOGLOBIN 27.7 pg (27.0-33.0); MEAN CORPUSCULAR HGB CONC 32.6 g/dl (32.0-36.5); MEAN CORPUSCULAR VOLUME 84.9 fl (80.0-96.0); MONO # 0.6 10^3/uL (0.0-0.8); MONO % 8.8 % (0.0-5.0); NEUTROPHILS # 3.3 10^3/uL (1.5-8.5); NEUTROPHILS % 47.7 % (36.0-66.0); PLATELET COUNT, AUTOMATED 248 10^3/uL (150-450); RED BLOOD COUNT 4.77 10^6/uL (4.30-6.10); WHITE BLOOD COUNT 6.8 10^3/uL (4.0-10.0)
[2020-10-08 06:55] LABS: BLOOD UREA NITROGEN 11 MG/DL (7-18); C REACTIVE PROTEIN QUANTITATIV 3.06 MG/DL (0.00-0.30); CARBON DIOXIDE LEVEL 24 MEQ/L (21-32); CHLORIDE LEVEL 106 MEQ/L (98-107); GLOMERULAR FILTRATION RATE > 60.0 (>60); GLUCOSE, FASTING 108 MG/DL (70-100); POTASSIUM SERUM 3.4 MEQ/L (3.5-5.1); SODIUM LEVEL 139 MEQ/L (136-145)
[2020-10-08 07:06] LABS: ERYTHROCYTE SEDIMENTATION RATE 37 mm/hr (0-15)
[2020-10-08] MEDS ORDERED: POTASSIUM CHLORIDE 10 MEQ SR TABLET PO ONE (07:30)
[2020-10-08] MEDS: OLANZapine 10 MG TAB PO SCH (08:58)
[2020-10-08] MEDS: PANTOPRAZOLE 40MG TAB (PROTONIX) PO SCH (08:58)
[2020-10-08] MEDS: ALPRAZolam 0.5 MG TAB PO SCH (08:58)
[2020-10-08] MEDS: DIVALPROEX 500 MG TAB PO SCH (08:58)
[2020-10-08] MEDS ORDERED: LINEZOLID 600MG TABLET (ZYVOX) PO SCH (09:00)
--- NOTE | 2020-10-08 09:55 | DS.PDOC ---
Discharge Summary General Date of Admission Oct 03, 2020 at 21:16 Date of Discharge 10/08/20 Discharge Summary DISCHARGE DIAGNOSES: Acute hypoxic respiratory failure,resolved s/p intubation/mechanical ventilation extubation ETOH intoxication Hypothermia,resolved Methicillin-resistatn Staph Aureus pneumonia RLL Aspiration Rhabdomyolysis,resolved Depression DISCHARGE MEDICATIONS: SEE BELOW ALLERGIES: SEE BELOW DISCHARGE INSTRUCTIONS: DO NOT TAKE ZOLOFT WHILE TAKING ANTIBIOTIC ZYVOX COMPLETE 5 MORE DAYS OF ZYVOX PCP FU APPT WITHIN 5 DAYS PCP TO REFER TO A PSYCHIATRIST FOR DEPRESSION WITHIN 7DAYS HOSPITAL COURSE: 20-year-old male brought into the emergency room on 10/03/2020 [place] was given Narcan, but had acute hypoxic respiratory failure, hypothermia, aspiration, rhabdomyolysis. Patient was emergently intubated x 48hrs, sputum cx: MRSA with signs of aspiration. Pt was on iv ceftriaxone 1 gram q12hr x 3days, but became febrile 101.5. blood cx negative x 3 . Ceftriaxone was discontinued, and pt was given iv vanco 1gram q8hrs w wbc improving to normal and no repeat fevers. pt was discharged on zyvox to complete 5 days. total abx 7days=2 days iv vanco + 5 days po zyvox. his zoloft is to be held while on zyvox. pt was seen by psychiatrist Dr. Davis for depression and recommended outpt psych for management. pt was given xanax tid for anxiety. DISCHARGE PHYSICAL EXAMINATION: VITAL SIGNS: Please see below. GENERAL: talking on the phone with his girlfriend .no conversational dyspnea no distress aaox 3 flat affect HEENT: moist mucous membranes. thyromegaly, cervical lymphadenopathy CARDIOVASCULAR: S1, S2, sinus rhythm, no murmurs, rubs or gallops. RESPIRATORY: Diminished crackles at the right base ABDOMINAL: Positive bowel sounds, soft, nontender, nondistended. EXTREMITIES: No cyanosis, clubbing or pitting edema LABORATORY DATA, IMAGING STUDIES, MICROBIOLOGY: Please see below. The toxicology screen was showing ethyl alcohol 0.387. Opiates and methadone were negative. Barbiturates negative. Phencyclidine negative. Amphetamines negative. Benzodiazepines negative. Cocaine and cannabinoids were negative. A smear for COVID was performed and was negative. Influenza A and B were negative. RSV was negative. DIAGNOSTIC IMAGING: Studies reviewed and assessed. Chest x-ray shows hazy interstitial infiltrates, left greater than right, and a formal report is pending. CT scan of his head was performed. There was no acute intracranial abnormality appreciated by radiology. TIME SPENT ON DISCHARGE: 30 MIN Vital Signs/I&Os Vital Signs Date Time Temp Pulse Resp B/P (MAP) Pulse Ox O2 Delivery O2 Flow Rate FiO2 10/08/20 06:00 98.9 97 18 116/68 (84) 98 10/07/20 14:00 Room Air 10/05/20 08:00 21 I&O- Last 24 Hours up to 6 AM 10/08/20 06:00 Intake Total 2350 ml Balance 2350 ml Laboratory Data Labs 24H Laboratory Tests 2 10/08/20 05:57: Immature Granulocyte % (Auto) 1.0, Neutrophils (%) (Auto) 47.7, Lymphocytes (%) (Auto) 38.5, Monocytes (%) (Auto) 8.8H, Eosinophils (%) (Auto) 3.4H, Basophils (%) (Auto) 0.6, Neutrophils # (Auto) 3.3, Lymphocytes # (Auto) 2.6, Monocytes # (Auto) 0.6, Eosinophils # (Auto) 0.2, Basophils # (Auto) 0.0, Nucleated Red Blood Cells % (auto) 0.0, Erythrocyte Sedimentation Rate 37H, Anion Gap 9, Glomerular Filtration Rate > 60.0, Calcium Level 9.0, C-Reactive Protein, Quantitative 3.06H CBC/BMP Laboratory Tests 10/08/20 05:57 Microbiology Microbiology 10/07/20 Blood Culture - Preliminary, Resulted No growth after 24 hours . All specim... 10/06/20 Blood Culture - Preliminary, Resulted No growth after 24 hours . All specim... 10/06/20 Blood Culture - Preliminary, Resulted No Growth after 48 hours. All Specime... 10/04/20 Gram Stain - Final, Complete 10/04/20 Sputum Culture - Final, Complete Staph.aureus Methicillin Resis Discharge Medications Scheduled Divalproex Sodium (Divalproex Sodium) 500 Mg Tablet.dr, 500 MG PO BID, (Reported) Divalproex Sodium (Divalproex Sodium) 250 Mg Tablet.dr, 250 MG PO QHS, (Reported) TAKES WITH 500MG FOR 750MG TOTAL AT QHS Levothyroxine Sodium (Synthroid) 25 Mcg Tablet, 37.5 MCG PO DAILY, (Reported) Linezolid (Zyvox) 600 Mg Tablet, 600 MG PO BID with food Olanzapine (Olanzapine) 10 Mg Tablet, 10 MG PO BID, (Reported) Pantoprazole Sodium (Pantoprazole Sodium) 40 Mg Tablet.dr, 40 MG PO DAILY, (Reported) Prazosin Hcl (Prazosin HCl) 2 Mg Capsule, 2 MG PO QHS, (Reported) Allergies Coded Allergies: No Known Allergies (Unverified , 10/03/20) ARIANNA HUIZAR MD Oct 08, 2020 09:43
== END 2020-10-08 13:57 | disposition home or self-care (01) | DRG 133 ==
LOC: EDBD 18:27 → M ED 18:27 → EEVIPCON 21:16 → M ED INP 21:16 → M PCU 10-04 01:03 → M MSPAV 10-05 13:33
PROVIDERS: ADMIT Internal Medicine Pulmonary Disease; ATTEND General Practice
PROC: 5A1945Z Respiratory Ventilation, 24-96 Consecutive Hours (ICD-10-PCS; principal; 2020-10-03)
PROC: 0BH17EZ Insertion of Endotracheal Airway into Trachea, Via Natural or Artificial Opening (ICD-10-PCS; 2020-10-03)
DX: J96.01 Acute respiratory failure with hypoxia (principal); J15.211 Pneumonia due to Methicillin susceptible Staphylococcus aureus; T68.XXXA Hypothermia, initial encounter; M62.82 Rhabdomyolysis; F25.9 Schizoaffective disorder, unspecified; X31.XXXA Exposure to excessive natural cold, initial encounter; F32.9 Major depressive disorder, single episode, unspecified; F10.129 Alcohol abuse with intoxication, unspecified; Y99.8 Other external cause status; F43.10 Post-traumatic stress disorder, unspecified; F41.9 Anxiety disorder, unspecified; Z20.822 Contact with and (suspected) exposure to COVID-19

== ENCOUNTER 2020-11-06 20:51 | Inpatient (IN) | payer MEDICAID, OTHER ==
[~2020-11-06] VITALS: Ht 162.6 cm; Wt 66.6 kg
[~2020-11-06 20:51] MED LIST: DIVA250T67 PO; DIVA500T94 PO; OLAN10TA2 PO; PANT40TA29 PO; PRAZ2CAP PO; SERT25TA21 PO; SYNT25TA PO; ZYVO1TAB PO
[2020-11-06] MEDS ORDERED: ZOLO50TA PO (21:32)
[2020-11-06 21:56] LABS: HEMATOCRIT 41.7 % (42.0-52.0); HEMOGLOBIN 13.6 g/dl (13.5-17.5); MEAN CORPUSCULAR HEMOGLOBIN 27.9 pg (27.0-33.0); MEAN CORPUSCULAR HGB CONC 32.6 g/dl (32.0-36.5); MEAN CORPUSCULAR VOLUME 85.5 fl (80.0-96.0); PLATELET COUNT, AUTOMATED 196 10^3/uL (150-450); RED BLOOD COUNT 4.88 10^6/uL (4.30-6.10); WHITE BLOOD COUNT 7.5 10^3/uL (4.0-10.0)
[2020-11-06 22:17] LABS: AMPHETAMINES LEVEL URINE NEGATIVE (NEGATIVE); BARBITURATES URINE NEGATIVE (NEGATIVE); BENZODIAZEPINES URINE NEGATIVE (NEGATIVE); CANNABINOIDS URINE NEGATIVE (NEGATIVE); COCAINE METABOLITE URINE NEGATIVE (NEGATIVE); METHADONE URINE NEGATIVE (NEGATIVE); OPIATES URINE NEGATIVE (NEGATIVE); PHENCYCLIDINE URINE NEGATIVE (NEGATIVE)
[2020-11-06 22:33] LABS: ACETAMINOPHEN LEVEL < 2.0 UG/ML (10.0-30.0); ALBUMIN 3.5 GM/DL (3.2-5.2); ALT/SGPT 31 U/L (12-78); BILIRUBIN,DIRECT < 0.1 MG/DL (0.0-0.2); BILIRUBIN,TOTAL 0.2 MG/DL (0.2-1.0); BLOOD UREA NITROGEN 13 MG/DL (7-18); CALCIUM LEVEL 8.8 MG/DL (8.5-10.1); CARBON DIOXIDE LEVEL 27 MEQ/L (21-32); CHLORIDE LEVEL 106 MEQ/L (98-107); CREATININE FOR GFR 0.99 MG/DL (0.70-1.30); ETHYL ALCOHOL (ETHANOL) < 0.003 % (0.000-0.010); GLOMERULAR FILTRATION RATE > 60.0 (>60); GLUCOSE, FASTING 83 MG/DL (70-100); POTASSIUM SERUM 3.6 MEQ/L (3.5-5.1); SALICYLATE LEVEL < 1.7 MG/DL (5.0-30.0); SODIUM LEVEL 139 MEQ/L (136-145); TOTAL PROTEIN 7.4 GM/DL (6.4-8.2)
[2020-11-07] MEDS ORDERED: DIPH25CA32 PO (02:12)
[2020-11-07] MEDS ORDERED: MAALOX 30 ML SUSP *UDC PO PRN (02:45)
[2020-11-07] MEDS ORDERED: OLANZapine ORAL DISINTEGRATING TAB 5MG PO PRN (02:45)
[2020-11-07] MEDS ORDERED: ACETAMINOPHEN TAB 650MG DOSE (2X325MG) PO PRN (02:45)
[2020-11-07] MEDS ORDERED: MOM 30ML SUSPENSION UDC PO PRN (02:45)
[2020-11-07 03:07] LABS: RSV AMPLIFICATION NEGATIVE (NEGATIVE)
[2020-11-07 05:45] VITALS: BP 140/94
[2020-11-07] MEDS ORDERED: diphenhydrAMINE 25MG CAP PO PRN (06:20)
[2020-11-07] MEDS: PANTOPRAZOLE 40MG TAB (PROTONIX) PO SCH (08:40)
[2020-11-07] MEDS: OLANZapine 10 MG TAB PO SCH ×2 (08:40→20:03)
[2020-11-07] MEDS: DIVALPROEX 500 MG TAB PO SCH ×2 (08:40→20:04)
[2020-11-07] MEDS ORDERED: SERTRALINE HCL 50 MG TAB PO SCH (09:00)
[2020-11-07] MEDS ORDERED: LEVOTHYROXINE 37.5MCG PER 1/2TAB (0.0375MG) PO SCH (09:00)
[2020-11-07] MEDS: LEVOTHYROXINE 37.5MCG PER 1/2TAB (0.0375MG) PO SCH (09:58)
--- NOTE | 2020-11-07 15:17 | HPEPDOC ---
General Date of Admission Nov 06, 2020 at 20:52 Date of Service: Nov 07, 2020 Chief Complaint The patient is a 20-year-old male admitted with a reason for visit of Schizoaffective Disorder. Source: Patient Exam Limitations: Mild cognitive slowing History of Present Illness Patient is 20 years old male with past medical history of depression, recent hos pitalization with regular respiratory failure and pneumonia in October 2020 presented to the hospital with suicidal ideation. Patient refused to provide any additional information except that he stated he had been having suicidal ideation and he is in mental health unit for it. During my interview patient denied any health problem, he denied fever, chills, nausea, vomiting, diarrhea or dysuria Home Medications Scheduled Divalproex Sodium (Divalproex Sodium) 500 Mg Tablet.dr, 500 MG PO BID, (Reported) Divalproex Sodium (Divalproex Sodium) 250 Mg Tablet.dr, 250 MG PO QHS, (Reported) TAKES WITH 500MG FOR 750MG TOTAL AT QHS Levothyroxine Sodium (Synthroid) 25 Mcg Tablet, 37.5 MCG PO DAILY, (Reported) Olanzapine (Olanzapine) 10 Mg Tablet, 10 MG PO BID, (Reported) Pantoprazole Sodium (Pantoprazole Sodium) 40 Mg Tablet.dr, 40 MG PO DAILY, (Reported) Prazosin Hcl (Prazosin HCl) 2 Mg Capsule, 2 MG PO QHS, (Reported) Sertraline Hcl (Zoloft) 50 Mg Tablet, 50 MG PO DAILY, (Reported) Scheduled PRN Diphenhydramine HCl (Diphenhydramine HCl) 25 Mg Capsule, 25 MG PO BID PRN for ANXIETY, (Reported) Allergies Coded Allergies: No Known Allergies (Unverified , 10/03/20) Past Medical History Medical History Depression, pneumonia Family History Father disabled of the car accident Social History * Smoker: current smoker Alcohol: Denies Drugs: denies A-FIB/CHADSVASC A-FIB History Current/History of A-Fib/PAF?: No Current PO Anticoag Therapy: No Review of Systems Constitutional: Denies: Chills, Fever Eyes: Denies: Pain ENT: Denies: Head Aches Pulmonary: Denies: Dyspnea Cardiovascular: Denies: Chest Pain Gastrointestinal: Denies: Nausea Genitourinary: Denies: Dysuria Hematologic: Denies: Bruising Endocrine: Denies: Polydipsia Musculoskeletal: Denies: Neck Pain Neurological: Denies: Weakness Psych: Reports: Anxiety, Depression Physical Examination General Exam: Positive: Alert Eye Exam: Positive: PERRLA ENT Exam: Positive: Atraumatic Neck Exam: Positive: Supple; Negative: JVD Chest Exam: Positive: Clear to auscultation Heart Exam: Positive: Rate Normal Telemetry: Positive: No significant arrhythmia Abdomen Exam: Positive: Normal bowel sounds Extremity Exam: Negative: Clubbing Skin Exam: Positive: Nl turgor and temperature Neuro Exam: Positive: Strength at 5/5 X4 ext Psych Exam: Positive: Oriented x 3 Vital Signs Vital Signs Date Time Temp Pulse Resp B/P (MAP) Pulse Ox O2 Delivery O2 Flow Rate FiO2 11/07/20 05:45 97.8 80 20 140/94 (109) 96 Room Air Laboratory Data Labs 24H Laboratory Tests 2 11/06/20 21:39: Urine Opiates Screen NEGATIVE, Urine Methadone Screen NEGATIVE, Urine Barbit urates Screen NEGATIVE, Urine Phencyclidine Screen NEGATIVE, Urine Amphetamines Screen NEGATIVE, Urine Benzodiazepines Screen NEGATIVE, Urine Cocaine Metabolite Screen NEGATIVE, Urine Cannabinoids Screen NEGATIVE 11/06/20 21:44: Nucleated Red Blood Cells % (auto) 0.0, Anion Gap 6L, Glomerular Filtration Rate > 60.0, Calcium Level 8.8, Total Bilirubin 0.2, Direct Bilirubin < 0.1, Aspartate Amino Transf (AST/SGOT) 23, Alanine Aminotransferase (ALT/SGPT) 31, Alkaline Phosphatase 109, Total Protein 7.4, Albumin 3.5, Albumin/Globulin Ratio 0.9, Thyroid Stimulating Hormone (TSH) 1.920, Salicylates Level < 1.7L, Acetaminophen Level < 2.0L, Ethyl Alcohol Level < 0.003 11/07/20 02:25: Coronavirus (COVID-19)(PCR) NEGATIVE, Influenza Type A (RT-PCR) NEGATIVE, Influenza Type B (RT-PCR) NEGATIVE, Respiratory Syncytial Virus (PCR) NEGATIVE CBC/BMP Laboratory Tests 11/06/20 21:44 Assessment/Plan Patient is 20 years old male with past medical history of depression, recent hospitalization with regular respiratory failure and pneumonia in October 2020 presented to the hospital with suicidal ideation. Patient refused to provide any additional information except that he stated he had been having suicidal ideation and he is in mental health unit for it. During my interview patient denied any health problem, he denied fever, chills, nausea, vomiting, diarrhea or dysuria Problems (1) Depression with suicidal ideation Status: Acute Problem Text: defer treatment to psych team Plan / VTE VTE Prophylaxis Ordered?: No VTE Exclusion Mechanical Proph: Low Risk for VTE DREAD SMITH DO Nov 07, 2020 15:17
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
[2020-11-07 16:29] LABS: BLOOD UREA NITROGEN 11 MG/DL (7-18); CALCIUM LEVEL 8.8 MG/DL (8.5-10.1); CARBON DIOXIDE LEVEL 26 MEQ/L (21-32); CHLORIDE LEVEL 107 MEQ/L (98-107); CREATININE FOR GFR 0.94 MG/DL (0.70-1.30); GLOMERULAR FILTRATION RATE > 60.0 (>60); GLUCOSE, FASTING 134 MG/DL (70-100); POTASSIUM SERUM 3.6 MEQ/L (3.5-5.1); SODIUM LEVEL 140 MEQ/L (136-145)
[2020-11-07 17:52] VITALS: BP 117/67
[2020-11-07] MEDS: PRAZOSIN 1 MG CAP PO SCH (20:03)
[2020-11-07] MEDS: DIVALPROEX 250 MG TAB PO SCH (20:04)
[2020-11-07] MEDS: traZODone 50 MG TAB PO PRN (20:04)
[2020-11-08] MEDS: LEVOTHYROXINE 37.5MCG PER 1/2TAB (0.0375MG) PO SCH (06:06)
[2020-11-08 06:22] VITALS: BP 125/76
[2020-11-08] MEDS: OLANZapine 10 MG TAB PO SCH ×2 (08:54→20:42)
[2020-11-08] MEDS: SERTRALINE 100 MG TAB PO SCH (08:54)
[2020-11-08] MEDS: DIVALPROEX 500 MG TAB PO SCH ×2 (08:54→20:41)
[2020-11-08] MEDS: PANTOPRAZOLE 40MG TAB (PROTONIX) PO SCH (08:54)
--- NOTE | 2020-11-08 13:15 | MHIPNPDOC ---
[facility] Progress Note Progress Note DATE OF SERVICE: 11/08/20 HISTORY: Review of past admissions March 2020 and July 2020. Both address depression but in March, he talked about girlfriend, and his plans and in July. He talked about the of his infant child and the young lady's suicide. He does not remember the last time he saw her. Since the child 11 months ago hitting head in bathtub. Patient is rather downcast today and says he doesn't remember dates. VITAL SIGNS: See below. NEW TEST RESULTS: None. CURRENT MEDICATIONS: See below. MENTAL STATUS EXAMINATION: Patient is a 20-year old male, who is 20-year-old depressed with a similar history as previous admissions of having guilt over the of his child. Speech: Is, quiet and sparse. Language skills are no gross disturbance. Thought processes including:. No gross disturbance. Thought content: As above. Abstract reasoning, and computation:. No abstract reasoning. Description of associations:. No loose association. Description of abnormal or psychotic thoughts:. No psychotic thought apparently. Judgment: Poor. Insight:, Poor. Orientation: 3. Recent and remote memory: Forgetful. Attention span and concentration: Intact. Language:. No disturbance. Fund of knowledge: Limited. Mood: Low. Affect:. Congruent. DIAGNOSES: 1., Major depression, recurrent. 2., Personality disorder. 3. None. ASSESSMENT: As above MANAGEMENT PLAN:. Continue observation and investigation. TIME SPENT: 35 minutes. Vital Signs Vital Signs Date Time Temp Pulse Resp B/P (MAP) Pulse Ox O2 Delivery O2 Flow Rate FiO2 11/08/20 06:22 98.4 59 14 125/76 (92) 11/07/20 05:45 96 Room Air Laboratory Data 24H Labs Laboratory Tests 2 11/07/20 15:46: Anion Gap 7L, Glomerular Filtration Rate > 60.0, Calcium Level 8.8 CBC/BMP Laboratory Tests 11/07/20 15:46 Current Medications Current Medications Medications (Trade) Dose Ordered Sig/Elvira Route PRN Reason Start Time Stop Time Status Last Admin Dose Admin Acetaminophen (Tylenol Tab) 650 mg Q6HP PRN PO HEADACHE or DISCOMFORT 11/07/20 02:45 Al Hydrox/Mg Hydrox/Simethicone (Mylanta) 30 ml Q4HP PRN PO HEARTBURN/INDIGESTION 11/07/20 02:45 Diphenhydramine HCl (Benadryl) 25 mg BID PRN PO ANXIETY 11/07/20 06:20 Divalproex Sodium (Depakote) 250 mg QHS PO 11/07/20 21:00 11/07/20 20:04 Divalproex Sodium (Depakote) 500 mg BID PO 11/07/20 09:00 11/08/20 08:54 Home Med (Med Rec Complete!) ASDIRECTED XX 11/07/20 02:15 11/07/20 02:20 DC Levothyroxine Sodium (Synthroid) 37.5 mcg DAILY PO 11/07/20 09:00 11/07/20 08:43 DC Levothyroxine Sodium (Synthroid) 37.5 mcg DAILY@0600 PO 11/07/20 06:00 11/08/20 06:06 Magnesium Hydroxide (Milk Of Magnesia) 30 ml DAILYPRN PRN PO CONSTIPATION 11/07/20 02:45 Olanzapine (ZyPREXA ZYDIS) 5 mg Q4HP PRN PO AGITATION 11/07/20 02:45 Olanzapine (ZyPREXA) 10 mg BID PO 11/07/20 09:00 11/08/20 08:54 Pantoprazole Sodium (Protonix) 40 mg DAILY PO 11/07/20 09:00 11/08/20 08:54 Prazosin HCl (Minipress) 2 mg QHS PO 11/07/20 21:00 11/07/20 20:03 Sertraline HCl (Zoloft) 50 mg DAILY PO 11/07/20 09:00 11/07/20 09:27 DC 11/07/20 08:40 Sertraline HCl (Zoloft) 100 mg DAILY PO 11/08/20 09:00 11/08/20 08:54 Trazodone HCl (Desyrel) 50 mg QHSP PRN PO INSOMNIA 11/07/20 02:45 11/07/20 20:04 Allergies Coded Allergies: No Known Allergies (Unverified , 10/03/20) BE WEIR MD Nov 08, 2020 13:14
[2020-11-08 18:39] VITALS: BP 107/64
[2020-11-08] MEDS: DIVALPROEX 250 MG TAB PO SCH (20:41)
[2020-11-08] MEDS: PRAZOSIN 1 MG CAP PO SCH (20:42)
[2020-11-08] MEDS: traZODone 50 MG TAB PO PRN (20:42)
[2020-11-09] MEDS: LEVOTHYROXINE 37.5MCG PER 1/2TAB (0.0375MG) PO SCH (06:04)
[2020-11-09 06:39] VITALS: BP 123/63
[2020-11-09] MEDS: PANTOPRAZOLE 40MG TAB (PROTONIX) PO SCH (09:13)
[2020-11-09] MEDS: DIVALPROEX 500 MG TAB PO SCH ×2 (09:13→20:42)
[2020-11-09] MEDS: SERTRALINE 100 MG TAB PO SCH (09:13)
[2020-11-09] MEDS: OLANZapine 10 MG TAB PO SCH ×2 (09:13→20:42)
[2020-11-09] MEDS: traZODone 50 MG TAB PO PRN (20:42)
[2020-11-09] MEDS: DIVALPROEX 250 MG TAB PO SCH (20:42)
[2020-11-09] MEDS: PRAZOSIN 1 MG CAP PO SCH (20:43)
[2020-11-10] MEDS: LEVOTHYROXINE 37.5MCG PER 1/2TAB (0.0375MG) PO SCH (06:16)
[2020-11-10 07:27] VITALS: BP 134/63
[2020-11-10] MEDS: DIVALPROEX 500 MG TAB PO SCH ×2 (09:16→20:08)
[2020-11-10] MEDS: PANTOPRAZOLE 40MG TAB (PROTONIX) PO SCH (09:16)
[2020-11-10] MEDS: SERTRALINE 100 MG TAB PO SCH (09:16)
[2020-11-10] MEDS: OLANZapine 10 MG TAB PO SCH ×2 (09:16→20:08)
--- NOTE | 2020-11-10 16:36 | MHIPNPDOC ---
[facility] Progress Note Progress Note DATE OF SERVICE: 11/10/20 HISTORY: Mood improved in this 20-year-old male who states he is working out problems with his girlfriend. He is not suicidal. VITAL SIGNS: See below. NEW TEST RESULTS: . CURRENT MEDICATIONS: See below. MENTAL STATUS EXAMINATION: Patient is a 20-year-old male with a history of recurrent depression. Speech: no gross disturbance. Language skills are. No gross disturbance. Thought processes including: Denies suicidal thoughts. Thought content: Worked out difficulties with his girlfriend. Abstract reasoning, and computation:. Poor abstraction. Description of associations:. Loose associations. Description of abnormal or psychotic thoughts: No psychotic thought. Judgment: Poor. Insight:, Poor. Orientation: 3. Recent and remote memory: Intact. Attention span and concentration: Intact. Language:. No gross disturbance. Fund of knowledge: Reasonable. Mood: Improved. Affect: bRight. DIAGNOSES: 1. Recurrent depression. 2., Some intellectual limitation. 3.. . ASSESSMENT: As above. Prognostically, patient will probably continue repeat admissions when under stress MANAGEMENT PLAN:. Has follow-up plans already. TIME SPENT: 30 minutes. Vital Signs Vital Signs Date Time Temp Pulse Resp B/P (MAP) Pulse Ox O2 Delivery O2 Flow Rate FiO2 11/10/20 07:27 97.8 73 20 134/63 (86) 99 Room Air Current Medications Current Medications Medications (Trade) Dose Ordered Sig/Elvira Route PRN Reason Start Time Stop Time Status Last Admin Dose Admin Acetaminophen (Tylenol Tab) 650 mg Q6HP PRN PO HEADACHE or DISCOMFORT 11/07/20 02:45 Al Hydrox/Mg Hydrox/Simethicone (Mylanta) 30 ml Q4HP PRN PO HEARTBURN/INDIGESTION 11/07/20 02:45 Diphenhydramine HCl (Benadryl) 25 mg BID PRN PO ANXIETY 11/07/20 06:20 Divalproex Sodium (Depakote) 250 mg QHS PO 11/07/20 21:00 11/09/20 20:42 Divalproex Sodium (Depakote) 500 mg BID PO 11/07/20 09:00 11/10/20 09:16 Home Med (Med Rec Complete!) ASDIRECTED XX 11/07/20 02:15 11/07/20 02:20 DC Levothyroxine Sodium (Synthroid) 37.5 mcg DAILY PO 11/07/20 09:00 11/07/20 08:43 DC Levothyroxine Sodium (Synthroid) 37.5 mcg DAILY@0600 PO 11/07/20 06:00 11/10/20 06:16 Magnesium Hydroxide (Milk Of Magnesia) 30 ml DAILYPRN PRN PO CONSTIPATION 11/07/20 02:45 Olanzapine (ZyPREXA ZYDIS) 5 mg Q4HP PRN PO AGITATION 11/07/20 02:45 Olanzapine (ZyPREXA) 10 mg BID PO 11/07/20 09:00 11/10/20 09:16 Pantoprazole Sodium (Protonix) 40 mg DAILY PO 11/07/20 09:00 11/10/20 09:16 Prazosin HCl (Minipress) 2 mg QHS PO 11/07/20 21:00 11/09/20 20:43 Sertraline HCl (Zoloft) 50 mg DAILY PO 11/07/20 09:00 11/07/20 09:27 DC 11/07/20 08:40 Sertraline HCl (Zoloft) 100 mg DAILY PO 11/08/20 09:00 11/10/20 09:16 Trazodone HCl (Desyrel) 50 mg QHSP PRN PO INSOMNIA 11/07/20 02:45 11/09/20 20:42 Allergies Coded Allergies: No Known Allergies (Unverified , 10/03/20) BE WEIR MD Nov 10, 2020 16:36
[2020-11-10 19:02] VITALS: BP 111/53
[2020-11-10] MEDS: traZODone 50 MG TAB PO PRN (20:08)
[2020-11-10] MEDS: DIVALPROEX 250 MG TAB PO SCH (20:08)
[2020-11-10 20:09] VITALS: BP 127/75
[2020-11-10] MEDS: PRAZOSIN 1 MG CAP PO SCH (20:09)
[2020-11-11 06:00] VITALS: BP 133/75
[2020-11-11] MEDS: LEVOTHYROXINE 37.5MCG PER 1/2TAB (0.0375MG) PO SCH (06:47)
--- NOTE | 2020-11-11 09:27 | MHIPNPDOC ---
[facility] [place] Progress Note Progress Note DATE OF SERVICE: 11/11/20 HISTORY: 20-year-old male with recurrent depressive episodes with suicidal ideation. VITAL SIGNS: See below. NEW TEST RESULTS: None. CURRENT MEDICATIONS: See below. MENTAL STATUS EXAMINATION: Patient is a 20-year old male, who is and improved mood, no longer preoccupied with of child, and seemingly improved with girlfriend relationship. Speech: Is. No gross disturbance. Language skills are. No gross disturbance. Thought processes including:. No gross disturbance. Thought content: Improved mood with girlfriend relationship improved. Abstract reasoning, and computation:. Poor abstract reasoning. Description of associations:, No loose association. Description of abnormal or psychotic thoughts:. No psychotic thought. Judgment: Poor. Insight:, Limited. Orientation: 3. Recent and remote memory: Intact. Attention span and concentration: Intact. Language: And intact. Fund of knowledge: Reasonable. Mood: Good. Affect: Congruent. DIAGNOSES: 1. Recurrent depression. 2., Intellectual limitation. 3., None. ASSESSMENT: As above MANAGEMENT PLAN: Discharge back to outpatient care. TIME SPENT: 30 minutes. Vital Signs Vital Signs Date Time Temp Pulse Resp B/P (MAP) Pulse Ox O2 Delivery O2 Flow Rate FiO2 11/10/20 20:09 127/75 11/10/20 19:02 97.8 69 18 11/10/20 07:27 99 Room Air Current Medications Current Medications Medications (Trade) Dose Ordered Sig/Elvira Route PRN Reason Start Time Stop Time Status Last Admin Dose Admin Acetaminophen (Tylenol Tab) 650 mg Q6HP PRN PO HEADACHE or DISCOMFORT 11/07/20 02:45 Al Hydrox/Mg Hydrox/Simethicone (Mylanta) 30 ml Q4HP PRN PO HEARTBURN/INDIGESTION 11/07/20 02:45 Diphenhydramine HCl (Benadryl) 25 mg BID PRN PO ANXIETY 11/07/20 06:20 Divalproex Sodium (Depakote) 250 mg QHS PO 11/07/20 21:00 11/10/20 20:08 Divalproex Sodium (Depakote) 500 mg BID PO 11/07/20 09:00 11/10/20 20:08 Home Med (Med Rec Complete!) ASDIRECTED XX 11/07/20 02:15 11/07/20 02:20 DC Levothyroxine Sodium (Synthroid) 37.5 mcg DAILY PO 11/07/20 09:00 11/07/20 08:43 DC Levothyroxine Sodium (Synthroid) 37.5 mcg DAILY@0600 PO 11/07/20 06:00 11/11/20 06:47 Magnesium Hydroxide (Milk Of Magnesia) 30 ml DAILYPRN PRN PO CONSTIPATION 11/07/20 02:45 Olanzapine (ZyPREXA ZYDIS) 5 mg Q4HP PRN PO AGITATION 11/07/20 02:45 Olanzapine (ZyPREXA) 10 mg BID PO 11/07/20 09:00 11/10/20 20:08 Pantoprazole Sodium (Protonix) 40 mg DAILY PO 11/07/20 09:00 11/10/20 09:16 Prazosin HCl (Minipress) 2 mg QHS PO 11/07/20 21:00 11/10/20 20:09 Sertraline HCl (Zoloft) 50 mg DAILY PO 11/07/20 09:00 11/07/20 09:27 DC 11/07/20 08:40 Sertraline HCl (Zoloft) 100 mg DAILY PO 11/08/20 09:00 11/10/20 09:16 Trazodone HCl (Desyrel) 50 mg QHSP PRN PO INSOMNIA 11/07/20 02:45 11/10/20 20:08 Allergies Coded Allergies: No Known Allergies (Unverified , 10/03/20) BE WEIR MD Nov 11, 2020 09:27
[2020-11-11] MEDS: SERTRALINE 100 MG TAB PO SCH (09:36)
[2020-11-11] MEDS: DIVALPROEX 500 MG TAB PO SCH ×2 (09:36→20:38)
[2020-11-11] MEDS: PANTOPRAZOLE 40MG TAB (PROTONIX) PO SCH (09:36)
[2020-11-11] MEDS: OLANZapine 10 MG TAB PO SCH ×2 (09:36→20:39)
[2020-11-11 17:55] VITALS: BP 140/72
[2020-11-11] MEDS: DIVALPROEX 250 MG TAB PO SCH (20:39)
[2020-11-11] MEDS: PRAZOSIN 1 MG CAP PO SCH (20:39)
[2020-11-11] MEDS: traZODone 50 MG TAB PO PRN (20:39)
[2020-11-12] MEDS: LEVOTHYROXINE 37.5MCG PER 1/2TAB (0.0375MG) PO SCH (06:03)
[2020-11-12 06:56] VITALS: BP 98/54
[2020-11-12] MEDS ORDERED: TRAZ-252 PO (08:55)
[2020-11-12] MEDS ORDERED: ZOLO100T PO (08:55)
[2020-11-12] MEDS: OLANZapine 10 MG TAB PO SCH (09:39)
[2020-11-12] MEDS: PANTOPRAZOLE 40MG TAB (PROTONIX) PO SCH (09:39)
[2020-11-12] MEDS: DIVALPROEX 500 MG TAB PO SCH (09:39)
[2020-11-12] MEDS: SERTRALINE 100 MG TAB PO SCH (09:39)
--- NOTE | 2020-11-12 11:20 | MHDSPDOC ---
[facility] Discharge Summary Discharge Summary DATE OF ADMISSION: Nov 06, 2020 at 20:52 DATE OF DISCHARGE: Oct DISCHARGE DIAGNOSES: 1. Recurrent depression. 2. * Pt was brought to ED by EMS for SI with plan. Pt reports having suidical thoughts for the past 3 weeks with plan to cut wrists. Pt reports poor sleep and states he has been experiencing nightmares everynight for the last 3 weeks of him getting either shot or stabbed. Pt reports that these are "PTSD dreams from seeing a lot of 'drive by's growing up." Pt is A&Ox3, but fell back asleep twice in the early stages of MHE after being woken up by PSA. Pt adjusted throughout and was cooperative and appropriate. Pt reports no HI, no VH, normal appetite, and no drug or alcohol use. Pt reports AH of voices telling him to harm himself and "he would be better off ." Pt reports multiple in patient stays in the past with one suicide attempt by overdose in 2014. CONSULTANTS INVOLVED: None TREATMENT AND PROGRESS ON THE UNIT :. Initially, patient claimed depression with suicide thoughts and he was preoccupied with the loss of his child and the mother of his child. His mood improved significantly as he stated he had had. Problems with his girlfriend. We increased his Zoloft from 50-100 mg initially HOSPITAL COURSE:. Mood improved suicide thoughts were no longer stated DISCHARGE ASSESSMENT: Recurrent depression MENTAL STATUS EXAMINATION ON DISCHARGE: Patient is a, 20-year old male, who is, in good mood and bright. Speech is. No gross disturbance. Language skills are. No gross disturbance. Thought processes including: No gross disturbance. Thought content: Wanting to go home. Abstract reasoning, and computation: Minimal. Abstraction. Description of associations:. No loose association. Description of abnormal or psychotic thoughts:. No psychotic thought. Judgment: Fair. Insight: Poor. Orientation to 3. Recent and remote memory: Intact. Attention span and concentration: Intact. Language:. No gross disturbance. Fund of knowledge: Reasonable for his intelligence level. Mood: Good. Affect: Bright. MEDICATIONS ON DISCHARGE: -. Continue all medications except for Benadryl for anxiety was stopped and Zoloft for depression, was increased to 100 mg PLAN/FOLLOWUP ARRANGEMENTS: The patient had follow-up appointments arranged. The amount of time spent in the coordination of care for this patient was approximately 35 minutes. ETOH/Disorder Med Rx ETOH/DRUG DISORDER RX: N/A Vital Signs/I&Os Vital Signs Date Time Temp Pulse Resp B/P (MAP) Pulse Ox O2 Delivery O2 Flow Rate FiO2 11/12/20 06:56 97.4 59 14 98/54 (69) 100 Room Air Medications Scheduled Divalproex Sodium (Divalproex Sodium) 500 Mg Tablet.dr, 500 MG PO BID, (Reported) Divalproex Sodium (Divalproex Sodium) 250 Mg Tablet.dr, 250 MG PO QHS, (Repor teressa) TAKES WITH 500MG FOR 750MG TOTAL AT QHS Levothyroxine Sodium (Synthroid) 25 Mcg Tablet, 37.5 MCG PO DAILY, (Reported) Olanzapine (Olanzapine) 10 Mg Tablet, 10 MG PO BID, (Reported) Pantoprazole Sodium (Pantoprazole Sodium) 40 Mg Tablet.dr, 40 MG PO DAILY, (Reported) Prazosin Hcl (Prazosin HCl) 2 Mg Capsule, 2 MG PO QHS, (Reported) Sertraline Hcl (Zoloft) 100 Mg Tablet, 100 MG PO DAILY for DEP, #10 Scheduled PRN Trazodone HCl (Trazodone HCl) 50 Mg Tablet, 50 MG PO QHSP PRN for INSOMNIA, #10 Allergies Coded Allergies: No Known Allergies (Unverified , 10/03/20) BE WEIR MD Nov 12, 2020 11:20
--- NOTE | 2020-11-13 07:53 | MHIPNPDOC ---
[facility] Progress Note Progress Note DATE OF SERVICE: 11/09/20 HISTORY: 20-year-old male with recurrent depression and readmissions improved today as he has now settled difficulties with his girlfriend and is no longer pr eoccupied with of his child. VITAL SIGNS: See below. NEW TEST RESULTS: None. CURRENT MEDICATIONS: See below. MENTAL STATUS EXAMINATION: Patient is a 20-year old male, who is recovering from depressive episode with suicidal thoughts. Speech: Is no gross disturbance. Language skills are. No gross disturbance. Thought processes including: Gross disturbance. Thought content: Seems changed as he has worked out difficulties with girlfriend. Abstract reasoning, and computation:. Poor abstract reasoning. Description of associations:. No loose associations. Description of abnormal or psychotic thoughts:, No present psychotic thought. No suicidal ideation or homicidal ideation. Judgment:. Poor. Insight: Limited. Orientation: 3. Recent and remote memory: Intact. Attention span and concentration: No gross disturbance. Language:. No gross disturbance. Fund of knowledge: Reasonable. Mood: Improved. Affect:, Brighter. DIAGNOSES: 1. Recurrent major depression. 2. Social stressors. 3. None. ASSESSMENT: As above MANAGEMENT PLAN:. Will observe and begin to plan discharge. TIME SPENT: 30 minutes. Vital Signs Vital Signs Date Time Temp Pulse Resp B/P (MAP) Pulse Ox O2 Delivery O2 Flow Rate FiO2 11/12/20 06:56 97.4 59 14 98/54 (69) 100 Room Air Current Medications Current Medications Medications (Trade) Dose Ordered Sig/Elvira Route PRN Reason Start Time Stop Time Status Last Admin Dose Admin Acetaminophen (Tylenol Tab) 650 mg Q6HP PRN PO HEADACHE or DISCOMFORT 11/07/20 02:45 11/12/20 13:28 DC 11/11/20 16:48 Al Hydrox/Mg Hydrox/Simethicone (Mylanta) 30 ml Q4HP PRN PO HEARTBURN/INDIGESTION 11/07/20 02:45 11/12/20 13:28 DC 11/11/20 18:15 Diphenhydramine HCl (Benadryl) 25 mg BID PRN PO ANXIETY 11/07/20 06:20 11/12/20 13:28 DC 11/11/20 22:51 Divalproex Sodium (Depakote) 250 mg QHS PO 11/07/20 21:00 11/12/20 13:28 DC 11/11/20 20:39 Divalproex Sodium (Depakote) 500 mg BID PO 11/07/20 09:00 11/12/20 13:28 DC 11/12/20 09:39 Home Med (Med Rec Complete!) ASDIRECTED XX 11/07/20 02:15 11/07/20 02:20 DC Levothyroxine Sodium (Synthroid) 37.5 mcg DAILY PO 11/07/20 09:00 11/07/20 08:43 DC Levothyroxine Sodium (Synthroid) 37.5 mcg DAILY@0600 PO 11/07/20 06:00 11/12/20 13:28 DC 11/12/20 06:03 Magnesium Hydroxide (Milk Of Magnesia) 30 ml DAILYPRN PRN PO CONSTIPATION 11/07/20 02:45 11/12/20 13:28 DC Olanzapine (ZyPREXA ZYDIS) 5 mg Q4HP PRN PO AGITATION 11/07/20 02:45 11/12/20 13:28 DC 11/11/20 22:52 Olanzapine (ZyPREXA) 10 mg BID PO 11/07/20 09:00 11/12/20 13:28 DC 11/12/20 09:39 Pantoprazole Sodium (Protonix) 40 mg DAILY PO 11/07/20 09:00 11/12/20 13:28 DC 11/12/20 09:39 Prazosin HCl (Minipress) 2 mg QHS PO 11/07/20 21:00 11/12/20 13:28 DC 11/11/20 20:39 Sertraline HCl (Zoloft) 50 mg DAILY PO 11/07/20 09:00 11/07/20 09:27 DC 11/07/20 08:40 Sertraline HCl (Zoloft) 100 mg DAILY PO 11/08/20 09:00 11/12/20 13:28 DC 11/12/20 09:39 Trazodone HCl (Desyrel) 50 mg QHSP PRN PO INSOMNIA 11/07/20 02:45 11/12/20 13:28 DC 11/11/20 20:39 Allergies Coded Allergies: No Known Allergies (Unverified , 10/03/20) BE WEIR MD Nov 13, 2020 07:53
== END 2020-11-12 11:30 | disposition home or self-care (01) | DRG 751 ==
LOC: M ED 20:51 → M ED INP 20:52 → M PSY 11-07 05:00
PROVIDERS: ADMIT Psychiatry & Neurology Child & Adolescent Psychiatry; ATTEND Psychiatry & Neurology Child & Adolescent Psychiatry
DX: F33.9 Major depressive disorder, recurrent, unspecified (principal); F60.9 Personality disorder, unspecified; F79 Unspecified intellectual disabilities; Z20.822 Contact with and (suspected) exposure to COVID-19; Z79.899 Other long term (current) drug therapy; F17.200 Nicotine dependence, unspecified, uncomplicated